=== PATIENT | female | born 1955 | race Caucasian/White ===

== ENCOUNTER 2021-10-12 15:03 | Inpatient (IN) | payer MEDICARE, BC ==
[~2021-10-12] VITALS: Ht 160 cm; Wt 74.4 kg
--- NOTE | 2021-10-12 15:05 | NUR ---
AAOX3, BIBRA 88 from home c/o generalized malaise and dizziness, 30 mins STUDENT ASSISTANT. Resp is even and unlabored with NAD noted. Skin is warm and dry. Placed on the monitor. BS 230MG/DL STUDENT ASSISTANT. Awairing md for eval.
--- NOTE | 2021-10-12 15:10 | NUR ---
URINE COLLECTED AND SENT
[2021-10-12] MEDS ORDERED: ONDANSETRON HCL/PF 4 MG/2 ML VIAL ONE (15:50)
[2021-10-12 15:56] LABS: BASOPHILS # (AUTO) 0.1 K/uL (0.0-0.2); BASOPHILS % (AUTO) 0.6 % (0.0-2.0); EOSINOPHILS % (AUTO) 0.7 % (0.0-6.0); HEMATOCRIT 40 % (33-45); HEMOGLOBIN 12.8 g/dL (11.5-14.8); LYMPHOCYTES # (AUTO) 5.6 K/uL (0.8-4.8); LYMPHOCYTES % (AUTO) 39.2 % (20.0-44.0); MEAN CORPUSCULAR HGB CONC 32 g/dl (31.0-36.0); MEAN CORPUSCULAR VOLUME 87 fL (82-100); MONOCYTES # (AUTO) 0.8 K/uL (0.1-1.30); MONOCYTES % (AUTO) 5.4 % (2.0-12.0); NEUTROPHILS # (AUTO) 7.8 K/uL (1.8-8.9); NEUTROPHILS % (AUTO) 54.1 % (43.0-81.0); PLATELET COUNT (AUTO) 336 K/uL (150-450); WHITE BLOOD COUNT (AUTO) 14.4 K/uL (4.3-11.0)
[2021-10-12] MEDS ORDERED: ONDANSETRON HCL/PF 4 MG/2 ML VIAL IVP ONE (16:00)
[2021-10-12] MEDS ORDERED: IV NS 0.9% 1,000 ML BAG IV ONE (16:00)
[2021-10-12 16:11] LABS: CALCIUM, SERUM 9.4 mg/dL (8.5-10.1); CARBON DIOXIDE 28 mmol/L (21-32); CHLORIDE 101 mmol/L (98-107); CREATININE 0.7 mg/dL (0.6-1.3); GLUCOSE 195 mg/dL (74-106); POTASSIUM 3.5 mmol/L (3.5-5.1); SODIUM SERUM 139 mmol/L (136-145); UREA NITROGEN, BLOOD 34 mg/dL (7-18)
[2021-10-12 16:12] LABS: BILIRUBIN,URINE NEGATIVE (NEGATIVE); COLOR,URINE YELLOW (YELLOW); LEUKOCYTE ESTERASE ,URINE NEGATIVE (NEGATIVE); NITRITE, URINE NEGATIVE (NEGATIVE); PROTEIN,URINE TRACE mg/dl (NEGATIVE); UGLUCOSE >=1000 mg/dL (NEGATIVE); UROBILINOGEN,URINE 0.2 EU/dL (0.2)
[2021-10-12 16:19] LABS: ALANINE AMINOTRANSFERASE 18 U/L (12-78); ALBUMIN 3.5 g/dL (3.4-5.0); ALKALINE PHOSPHATASE 52 U/L (46-116); ASPARTATE AMINOTRANSFERASE 17 U/L (15-37); BILIRUBIN,DIRECT 0.2 mg/dL (0.0-0.2); BILIRUBIN,TOTAL 0.8 mg/dL (0.2-1.0); LIPASE 135 U/L (73-393); TOTAL PROTEIN, SERUM 7.7 g/dL (6.4-8.2)
[2021-10-12 16:33] LABS: RBC,URINE 0-2 /HPF (0-2)
[2021-10-12 16:34] LABS: BACTERIA,URINE Rare /HPF (None Seen)
--- NOTE | 2021-10-12 17:27 | NUR ---
PATTI DAUGHTER [phone]
--- NOTE | 2021-10-12 17:32 | NUR ---
COVID SWAB DONE AND SENT TO LAB
--- NOTE | 2021-10-12 17:35 | NUR ---
COVID TEST COLLECTED AND SENT
[2021-10-12] MEDS ORDERED: ROSU10TA29 PO (17:39)
[2021-10-12] MEDS ORDERED: JANUMET PO (17:39)
[2021-10-12] MEDS ORDERED: RIVA10TA PO (17:39)
[2021-10-12] MEDS ORDERED: LISI10TA29 PO (17:39)
--- NOTE | 2021-10-12 17:39 | NUR ---
MOVE SHEET SUBMITTED AND CALLED FOR TELE BED.
[2021-10-12] MEDS ORDERED: EMPA25TA PO (17:58)
[2021-10-12] MEDS ORDERED: CLOP75TA15 PO (17:58)
--- NOTE | 2021-10-12 18:04 | NUR ---
HOSPITALIST SPEAKING WITH DR. KENT.
[2021-10-12] MEDS ORDERED: DEXTROSE 50%-WATER 50 ML DISP.SYRIN IV PRN (18:30)
[2021-10-12] MEDS ORDERED: ACETAMINOPHEN 325 MG TABLET PO PRN (18:30)
[2021-10-12] MEDS ORDERED: MAG HYDROX/AL HYDROX/SIMETH 30 ML UDC PO PRN (18:30)
[2021-10-12] MEDS ORDERED: IV NS 0.9% 1,000 ML IV PRN (18:30)
[2021-10-12] MEDS ORDERED: ENOXAPARIN SODIUM 40 MG/0.4 ML DISP.SYRIN SQ ONE (19:04)
--- NOTE | 2021-10-12 19:07 | NUR ---
ULTRASOUND AT BEDSIDE
[2021-10-12] MEDS: ENOXAPARIN SODIUM 40 MG/0.4 ML DISP.SYRIN SQ SCH (19:22)
--- NOTE | 2021-10-12 20:37 | NUR ---
REPORT GIVEN TO JOSLYN Motta RN FOR JEREMIAH
--- NOTE | 2021-10-12 20:52 | NUR ---
PT TRANSFERRED TO 3W VIA ACLS PROTOCOL. VSS. ALL BELONGINGS WITH PT.
[2021-10-12 21:00] VITALS: BP 110/66
--- NOTE | 2021-10-12 21:30 | NUR ---
MANAGER FINANCELANDSCAPER NOTES RECEIVED FROM ER PER ARIEL THIS 65 YO FEMALE,ALERT,ORIENTED X3-4,CHIEF COMPLAINTS OF FEELING WEAK AND DIZZY,WITH NAUSEA AND VOMITING,WITH KNOWN HISTORY OF STROKE LAST AUGUST 09,NO RESIDUAL NOTED,ALL EXTREMITIES FUNCTIONING WELL.ABLE TO WALK WITH STEADY GAIT.UNVACCINATED WITH COVID VACCINE.RAPID TEST NEGATIVE,EVEN FLU AND PNA VACCINE REFUSED.WITH SALE LOCK LEFT AC INTACT AND PATENT.DENIES CHEST PAIN AT THE MOMENT.CALL LIGHT IN REACH,NEEDS ANTICIPATED.
[2021-10-12] MEDS ORDERED: ATORVASTATIN 40 MG TABLET PO SCH (22:00)
[2021-10-12] MEDS ORDERED: BLOOD SUGAR DIAGNOSTIC 1 EACH STRIP IN SCH (22:00)
[2021-10-12] MEDS ORDERED: SIMVASTATIN 40 MG TABLET PO SCH (22:00)
--- NOTE | 2021-10-12 22:00 | NUR ---
AUTOMOTIVE TECHNICIAN NOTES ACCU-CHECK BLOOD SUGAR CHECK 119,NO INSULIN COVERAGE.
[2021-10-12] MEDS: BLOOD SUGAR DIAGNOSTIC 1 EACH STRIP IN SCH (22:18)
[2021-10-13] VITALS: BP 102/44
[2021-10-13] MEDS ORDERED: BLOOD SUGAR DIAGNOSTIC 1 EACH STRIP IN SCH
--- NOTE | 2021-10-13 01:45 | NUR ---
STAGE SET UP WORKER NOTES IN THE RESTROOM,PATIENT VOMITED BROWNISH COLOR VOMITUS.SHE CLAIMED THAT SHE DRINK RED WINE AND ATE RICE FELLAP BROWN RICE THE NIGHT BEFORE SHE WAS ADMITTED. NO ZOFRAN ORDER.
--- NOTE | 2021-10-13 02:00 | NUR ---
CONTRACTOR GENERAL ENGINEERING NOTES HOSPITALIST ADOLESCENT COUNSELOR WAS PAGE AWAITING TO CALL BACK.
--- NOTE | 2021-10-13 02:10 | NUR ---
WRECKING MECHANIC NOTES DR CRAWLEY CALLED BACK,MADE AWARE OF PATIENT STATUS,WITH NEW ORDER OF ZOFRAN 4MG IV Q 6HOURS NEEDED,NOTED AND CARRIED OUT.
--- NOTE | 2021-10-13 02:14 | NUR ---
MANAGER STRATEGIC PARTNERSHIPS NOTES ZOFRAN 4MG IV GIVEN ORDERED FOR VOMITING.
[2021-10-13] MEDS ORDERED: ONDANSETRON HCL/PF 4 MG/2 ML VIAL IV PRN (02:30)
[2021-10-13 04:00] VITALS: BP 115/65
[2021-10-13] MEDS: BLOOD SUGAR DIAGNOSTIC 1 EACH STRIP IN SCH ×3 (05:55→17:41)
--- NOTE | 2021-10-13 06:00 | NUR ---
VAC PRESS OPERATOR NOTES BLOOD SUGAR CHECKED WITH RESULT OF 156 MG/DL. WITH INSULIN COVERAGE OF 2 UNITS BUT WILL BE GIVEN POST BREAKFAST PER PATIENT REQUEST.
[2021-10-13 06:35] LABS: BASOPHILS % (AUTO) 0.4 % (0.0-2.0); EOSINOPHILS % (AUTO) 0.2 % (0.0-6.0); HEMATOCRIT 33 % (33-45); HEMOGLOBIN 11.1 g/dL (11.5-14.8); LYMPHOCYTES # (AUTO) 2.2 K/uL (0.8-4.8); LYMPHOCYTES % (AUTO) 21.7 % (20.0-44.0); MEAN CORPUSCULAR HGB CONC 34 g/dl (31.0-36.0); MEAN CORPUSCULAR VOLUME 86 fL (82-100); MONOCYTES # (AUTO) 0.4 K/uL (0.1-1.30); MONOCYTES % (AUTO) 4.2 % (2.0-12.0); NEUTROPHILS # (AUTO) 7.5 K/uL (1.8-8.9); NEUTROPHILS % (AUTO) 73.5 % (43.0-81.0); PLATELET COUNT (AUTO) 287 K/uL (150-450); WHITE BLOOD COUNT (AUTO) 10.3 K/uL (4.3-11.0)
[2021-10-13 06:57] LABS: ALBUMIN 3.1 g/dL (3.4-5.0); BILIRUBIN,TOTAL 0.6 mg/dL (0.2-1.0); CREATININE 0.6 mg/dL (0.6-1.3); PHOSPHORUS 3.1 mg/dL (2.5-4.9); POTASSIUM 4.1 mmol/L (3.5-5.1); TOTAL PROTEIN, SERUM 6.8 g/dL (6.4-8.2)
--- NOTE | 2021-10-13 07:24 | NUR ---
HEALTH SCREENER CLOSING NOTES PATIENT IS ON BED AWAKE, ALERT AND ORIENTED X 4. BREATHING IS EVEN AND NONLABORED. ON ROOM AIR, TOLERATING WELL. WITH IV ACCESS AT LEFT AC OF NS 1L AT 50 ML/HR; INFUSING WELL. ABLE TO MAKE NEEDS KNOWN. SAFETY MEASURES IMPLEMENTED. CALL LIGHT AND TABLE WITHIN REACH. SIDE RAILS UP X 2. BED IS IN LOWEST LOCKED POSITION. ENDORSED TO MORNING SHIFT FOR CONTINUITY OF CARE.
[2021-10-13] MEDS ORDERED: PANTOPRAZOLE 40 MG TABLET.DR PO SCH (07:30)
[2021-10-13 07:43] LABS: THYROID STIMULATING HORMONE 0.271 uIU/mL (0.358-3.74)
[2021-10-13 08:00] VITALS: BP 137/65
--- NOTE | 2021-10-13 08:03 | NUR ---
KIER HAND OPENING NOTE Patient in bed, asleep. A/O x 3-4. On room air, breathing evenly and unlabored. No SOB or s/s of distress noted. IV access on LAC #18G infusing NS at 50 ml/hr. Safety precautions in place: bed in low, locked position; siderails up x 2; call light within reach. Will continue to monitor.
[2021-10-13] MEDS ORDERED: ASPIRIN EC 325 MG TABLET.DR PO SCH (09:00)
[2021-10-13] MEDS ORDERED: JANUMET PO SCH (09:00)
[2021-10-13] MEDS ORDERED: EMPAGLIFLOZIN 25 MG TABLET PO SCH (09:00)
[2021-10-13] MEDS ORDERED: LISINOPRIL (20MG) 20 MG TABLET PO SCH (09:00)
[2021-10-13] MEDS ORDERED: LINAGLIPTIN 5 MG TABLET PO SCH (09:00)
[2021-10-13] MEDS ORDERED: CLOPIDOGREL BISULFATE 75 MG TABLET PO SCH (09:00)
[2021-10-13] MEDS ORDERED: DOCUSATE SODIUM 100 MG CAPSULE PO SCH (09:00)
[2021-10-13] MEDS: INSULIN REGULAR, HUMAN 100 UNIT/ML 3 ML VIAL SQ PRN ×2 (11:56→17:43)
[2021-10-13 16:00] VITALS: BP 116/49
[2021-10-13] MEDS: ENOXAPARIN SODIUM 40 MG/0.4 ML DISP.SYRIN SQ SCH (18:30)
--- NOTE | 2021-10-13 19:10 | NUR ---
DISCHARGE NOTE Received order for discharge. Patient is A/O x 4, able to make needs known. Stable on room air, breathng evenly and unlabored. No SOB or s/s of distress noted. Denies any complains of pain or discomfort at this time. All belongings accounted for, belonging sheet signed. Discharge instructions given to patient both verbally and in written form, verbalized understanding. IV access removed, catheter tip intact. Pressure dressing applied, no signs of bleeding noted. Tele monitor and ID band removed as well. Patient left in stable condition with via private car.
[2021-10-15] MEDS ORDERED: METFORMIN 500 MG TABLET PO SCH (09:00)
== END 2021-10-13 19:00 | disposition home or self-care (01) | DRG 392 ==
LOC: ER 15:13 → TRANSITION 18:51 → TELE 20:22
PROVIDERS: ADMIT Registered Nurse; ATTEND Registered Nurse
DX: A05.9 Bacterial foodborne intoxication, unspecified (principal); E86.0 Dehydration; E11.9 Type 2 diabetes mellitus without complications; E66.9 Obesity, unspecified; I10 Essential (primary) hypertension; Z86.73 Personal history of transient ischemic attack (TIA), and cerebral infarction without residual deficits; Z87.891 Personal history of nicotine dependence; D72.829 Elevated white blood cell count, unspecified; R53.1 Weakness; K52.9 Noninfective gastroenteritis and colitis, unspecified; Z79.84 Long term (current) use of oral hypoglycemic drugs; Z68.29 Body mass index [BMI] 29.0-29.9, adult; Z20.822 Contact with and (suspected) exposure to COVID-19; M25.519 Pain in unspecified shoulder
CPT/HCPCS: 36415; 70450-TC; 70551-TC; 71045-TC; 80048-TC; 80053-TC; 80076-TC; 81001; 82962-TC; 83690-TC; 83735-TC; 84100-TC; 84443-TC; 84484-TC; 85025-TC; 87081-TC; 87086-TC; 92526; 92611-TC; 93307-TC; 93880-TC; 97116-TC; 97530-TC; C9803; G0378; J1650; J2405; J7030